=== PATIENT | male | born 1945 | race Caucasian/White ===

== ENCOUNTER 2021-05-05 13:20 | Observation (INO) | payer OTHER, SELFPAY ==
[2021-05-05] VITALS (12 sets, daily range): BP systolic 111–184; BP diastolic 65–92; PULSE 76–103; RESP 16–19; TEMP 36.6–37.4; O2SAT 94–98; BMI 31.4
--- NOTE | 2021-05-05 | ECG_ITS ---
Test Reason : DIZZINESS Blood Pressure : / mmHG Vent. Rate : 083 BPM Atrial Rate : 083 BPM P-R Int : 270 ms QRS Dur : 104 ms QT Int : 390 ms P-R-T Axes : 035 -61 034 degrees QTc Int : 458 ms Sinus rhythm with 1st degree A-V block Left axis deviation Inferior infarct , age undetermined Abnormal ECG No previous ECGs available Referred By: Generic ED Physician Electronically Signed By:DREAD PEREZ
--- NOTE | ~2021-05-05 | XR_ITS ---
EXAMINATION: XR CHEST CLINICAL INFORMATION: Fall. COMPARISON: None TECHNIQUE: Frontal view of the chest was obtained. FINDINGS: No significant abnormality is noted involving the heart, lungs, mediastinum, bony thorax or soft tissues. XR/XR chest 1V IMPRESSION: Unremarkable chest exam.
--- NOTE | ~2021-05-05 | CT_ITS ---
EXAM: CT scan of the head and cervical spine. INDICATION: Reason for Exam fall TECHNIQUE: A noncontrast CT scan was performed from the skull base to the vertex. A noncontrast CT scan of the cervical spine was performed from the base of the skull through T1 at 2.5 mm and 1.25 mm collimation. Coronal and sagittal reformats were obtained at the acquisition workstation. This CT examination was performed using dose optimization techniques as appropriate, variously including the following: *Automated exposure control *Adjustment of mA and/or kV according to patient size (this includes techniques or standardized protocols for targeted exams where dose is matched to indication/reason for exam; i.e. extremities or head) *Use of iterative reconstruction technique DLP: 446 and 710 mGy-cm COMPARISON: 09/17/2018 FINDINGS: Head: There is no evidence of acute intracranial hemorrhage or territorial infarction. Pond-white matter differentiation is preserved. No abnormal mass effect or midline shift. No extra-axial fluid collections. No abnormal attenuation is demonstrated within the brain parenchyma. Scattered periventricular and deep white matter hypodensities consistent with microangiopathy. The ventricles and sulcal spaces are proportional without hydrocephalus. Proportional prominence of the ventricles and sulcal spaces. No acute osseous or soft tissue abnormalities. The mastoid air cells and visualized portions of the paranasal sinuses are well aerated. Cervical Spine: Please note imaging excluded to C7-T1 junction. Advanced spondylosis most notable at C3-C4. The atlantooccipital and atlantoaxial articulations remain well aligned. Straightening of the normal cervical lordosis. Otherwise, there is anatomic alignment of the vertebral bodies and posterior elements. No evidence of acute fracture or subluxation. The vertebral body heights and disc spaces are otherwise maintained. There is no prevertebral soft tissue swelling. The thyroid gland and remaining cervical soft tissues are normal in appearance. The lung apices demonstrate no abnormalities. CT/CT cervical spine wo con IMPRESSION: No acute intracranial pathology. Imaging performed from C1 to the upper two thirds of C7. If this patient is symptomatic at the cervicothoracic junction, additional imaging may be obtained without additional charge. No gross fracture subluxation.
--- NOTE | ~2021-05-05 | MR_ITS ---
EXAMINATION: MR BRAIN WITHOUT CONTRAST CLINICAL INFORMATION: Dizziness. COMPARISON: CT head from 05/05/2021. TECHNIQUE: MRI of the brain was obtained using routine sequences without contrast. FINDINGS: No focal restricted diffusion is demonstrated to suggest acute or subacute cerebral ischemia. No evidence of acute or chronic hemorrhagic products on heme-sensitive imaging. Scattered periventricular, deep white matter, and brain stem T2 FLAIR hyperintensities consistent with mild underlying microangiopathy. Proportional prominence of the ventricles and sulcal spaces without evidence of obstructive hydrocephalus. No abnormal mass effect. No midline shift. Normal appearance of the pituitary gland. Normal positioning of the cerebellar tonsils. Normal arterial and venous vascular flow voids are present. Normal, homogeneous marrow signal. Mild mucosal thickening in the paranasal sinuses. No signal abnormalities within the mastoid. Bilateral lens extractions. MR/MR head/brain wo con IMPRESSION: 1. No acute intracranial abnormalities. 2. Mild underlying microangiopathy and generalized cerebral volume loss.
--- NOTE | 2021-05-05 14:33 | ED_ITS ---
HPI - General Adult General Chief complaint: Fall Stated complaint: FALL Time Seen by Provider: 05/05/21 14:09 Source: patient Mode of arrival: EMS Limitations: no limitations History of Present Illness HPI narrative: 75-year-old male with a past medical history of insulin dependent diabetes mellitus, hypertension, hyperlipidemia, who is not anticoagulated, presents for dizziness blurry vision and falling at 7:45 a.m. this morning. This occurred 7 hours ago. Patient got up out of bed, and took 2 steps, and fel t an electrical like shocks to his back into his right knee, and he fell and went face down and back to side on the floor. He flt dizzy, and had blurry vision. After falling, he was weak in his legs and could not get up. Patient states that normally he would be able to get up if he had fallen. Patient was on the floor from 8:00 a.m. until noon when he finally was able to crawl to a phone. Patient got his COVID booster of maturing yesterday. Denies fever, cough, urinary symptoms, chest pain, shortness of breath, nausea, vomiting, diarrhea, abdominal plain. His blurry vision has resolved now. He has no numbness or tingling. His leg weakness has resolved. He has no pain in his neck, no headache, no pain in his extremities. MD complaint: fall Onset (ago): hour(s) (7) Related Data Allergies Allergy/AdvReac Type Severity Reaction Status Date / Time No Known Allergies Allergy Unverified 06/02/20 19:37 [No Known Allergies*] Review of Systems Constitutional: Constitutional: Denies body ache(s), Denies chills, Denies fatigue, Denies fever(s), Denies headache(s), Denies malaise and Reports weakness Eyes: Eyes: Reports blurry vision, Denies diplopia, Denies loss of vision and Denies eye pain ENT: Denies vertigo, Reports dizziness, Denies otalgia, Denies headache(s), Denies mouth pain, Reports disequilibrium, Denies post nasal drip, Denies sinus pain, Denies sinus pressure, Denies sore throat and Denies throat swelling Cardiovascular: Cardiovascular: Denies chest pain, Denies syncope, Denies leg edema, Reports lightheadedness, Denies Loss of Consciousness, Denies palpitations and Denies dyspnea Respiratory: Respiratory: Denies chest congestion, Denies cough and Denies dyspnea Gastrointestinal: Gastrointestinal: Denies abdominal pain, Denies hematochezia, Denies constipation, Denies diarrhea and Denies vomiting Genitourinary: Genitourinary: Denies dysuria, Denies flank pain, Denies urinary frequency, Denies urinary hesitancy, Denies urinary incontinence and Denies urinary urgency Musculoskeletal: Musculoskeletal: Reports muscle weakness and Denies tingling Integumentary/Breasts: Skin/Breast: Denies erythema, Denies rash and Denies wounds Neurologic: Denies Abnormal speech present, Denies confusion, Denies vertigo, Reports dizziness, Denies syncope, Denies headache(s), Denies loss of vision, Denies Sensory deficit (Neuro), Denies tingling, Denies paresthesias, Reports disequilibrium and Reports weakness Psychiatric: Psychiatric: Denies anxiety, Denies confusion and Denies depression Endocrine: Endocrine: Denies fatigue and Denies palpitations Allergic/Immunologic: Allergic/Immunologic: Denies throat swelling [facility] Past Medical History [facility] Narrative: Patient lives alone Insulin-dependent diabetic, hypertension, hyperlipidemia Never smoker Medical History (Updated 05/05/21 @ 17:03 by OTILIO Lay) Diabetes HLD (hyperlipidemia) HTN (hypertension) Social History Social History Advance Directives: No Advance Directives Information Provided: No Physical Exam Vital Signs: Vital Signs: Last Vital Signs Temp 98.3 F 05/05/21 15:32 Pulse 84 05/05/21 16:44 Resp 16 05/05/21 16:44 BP 184/92 H 05/05/21 16:44 Pulse Ox 98 05/05/21 16:44 Body Mass Index 31.4 Const: General: no acute distress, alert and awake; No confusion Nutritional Appearance: obese centrally obese Orientation/consciousness: patient oriented x3 and No confusion Limitations: no limitations HENMT: Head: Yes normal to inspection, Yes normocephalic and Yes atraumatic Ears: hearing grossly normal bilaterally and external ears normal General nose exam: Normal external nose present Face and sinus: Yes normal facial exam Mouth: Normal oral and palatal mucosa present Throat: Yes posterior oropharynx normal Eyes: Conjunctivae: conjunctivae normal Pupils: Equal, round and reactive pupils present EOM: EOMs intact bilaterally and No Nystagmus present Neck: Neck: Yes full ROM, Yes no lymphadenopathy and Yes supple Resp: Effort & Inspection: normal respiratory effort and able to speak in complete sentences Auscultation: clear to auscultation bilaterally, no crackles, no rales, no rhonchi and no wheezes Cardio: Rate: regular rate Rhythm: regular rhythm Heart sounds: S1 tawanda l heart sound present and S2 normal heart sound present GI: Inspection: Yes visible herniation (umbilical) Palpation (GI): Soft to palpation, nontender, no guarding, not rigid and Hernia present umbilical (nontender and reducible) Percussion: Yes normal to percussion Auscultat ion: normal bowel sounds : General: Yes no CVA tenderness Back/Spine/Pelvis: Back: no CVA tenderness Cervical Spine: normal cervical lordosis, cervical ROM normal, No cervical muscular tenderness and No Cervical spine tenderness Thoracic/Lumbar Spine: No thoracic spinal tenderness and No lumbar spinal tenderness Skin: Other: Mild hemosiderin deposits lower extremities General skin exam: no rashes or lesions noted Neuro: General: patient oriented x3 and No confusion Cranial nerves: Yes CN's II-XII intact bilaterally, Yes Facial sensation intact/muscles of mastication intact, Yes Equal, round and reactive pupils present, Yes Bilateral ly intact EOM present, Yes Nystagmus not present, Yes Midline tongue present, Yes Ability to bilaterally rotate head present, Yes Ability to bilaterally elevate shoulders present and No Nystagmus present Cognition (Neuro): normal cognition Speech: No Abnormal speech present Gait exam (Neuro): Ataxic gait present Motor exam (neuro): 5/5 motor strength present throughout and Pronator motor function not present Sensory Exam: No Sensory deficit (Neuro) Deep tendon reflexes (DTR's): Right brachioradialis reflex intensity grade: 1+, Left brachioradialis reflex intensity grade: 1+, Right patellar reflex intensity grade: 1+ and Left patellar reflex intensity grade: 1+ Coordination: vialdr-ov-rubi test normal, does not sway with eyes open and Romberg test negative Romberg Test: Negative Pupils: Normal pupillary reactivity/response: bilateral Extrem: General: Yes normal to inspection and Yes full ROM Psych: Appearance: grossly normal Affect: normal affect Attitude: cooperative Thought process: Normal thought process present Course Course Course Narrative: 75-year-old male presents for feeling dizzy with blurry vision, having a fall, and being weak and unable to get up for 4 hours. Patient got his booster of maternal yesterday. On exam, patient is alert and oriented, he is neurologically intact except that his gait is shuffling and ataxic. Patient is outside the window for tPA, but I will still order CTA of head and neck due to patient's symptoms of dizziness, gait ataxia, and blurry vision. Patient's creatinine is 1.84, with a GFR of 36. Cannot do CTA, will do MR instead. Pt's blood glucose is 561. Creatinine kinase 642, troponin 31.8. Will give fluids, insulin EKG shows no acute ischemia, patient is not having chest pain. Spondylosis at C3-C4, no cervical spine fracture. Head CT is negative. Radiologist, Dr Myers, called and told me that it would be difficult to obtain MRI today due to MRI being backed up. Patient being admitted for possible TIA, hyperglycemia Patient tells me he did not take his insulin last night nor this morning. Medical Decision Making Lab Data Result diagrams: 05/05/21 14:55 05/05/21 14:55 Labs: Lab Results 05/05/21 05/05/21 05/05/21 Range/Units 14:54 14:55 14:55 WBC 6.2 (4.8-10.8) X10*3/uL RBC 4.43 L (4.60-5.80) X10*6/uL Hgb 14.1 (14.0-18.0) g/dl Hct 41.6 L (42-52) % MCV 93.9 (80-98) fL MCH 31.8 (27.0-33.0) pg MCHC 33.9 (31.0-36.0) g/dl RDW 12.9 (11.0-16.0) % Plt Count 137 L (160-400) X10*3/uL MPV 10.9 (9.4-12.4) fL Immature Gran % (Auto) 0.7 H (0.0-0.4) % Neut % (Auto) 80.5 H (45-73) % Lymph % (Auto) 9.8 L (20-40) % [place] % (Auto) 8.5 (2-11) % Eos % (Auto) 0.2 (0-4) % Baso % (Auto) 0.3 (0-2) % Lymph # (Auto) 0.6 L (1.2-4.9) X10*3/uL [place] # (Auto) 0.5 (0.1-1.2) X10*3/uL Eos # (Auto) 0.0 (0.0-0.4) X10*3/uL Baso # (Auto) 0.0 (0.0-0.2) X10*3/uL Abs Immat Gran (auto) 0.04 H (0.00-0.03) X10*3/uL Absolute Neuts (auto) 5.0 (2.0-8.3) X10*3/uL Absolute Nucleated RBC 0.000 (0.0-0.012) X10*3/uL Nucleated RBC % (auto) 0.0 (0.0-0.2) /100WBC PT 10.6 (9.9-13.0) SEC INR 0.9 (0.9-1.1) APTT 22.5 L (24.1-38.0) SEC Sodium (135-145) mmol/L Potassium (3.3-5.1) mmol/L Chloride (96-108) mmol/L Carbon Dioxide (22-29) mmol/L Anion Gap (12-20) BUN (9-16) mg/dL Creatinine (0.5-1.4) mg/dL Estim Creat Clear Calc Estimated GFR Random Glucose (60-115) mg/dL Calcium (8.4-10.2) mg/dL Magnesium (1.6-2.6) mg/dL Total Bilirubin (0.0-1.0) mg/dL AST (5-37) U/L ALT (0-40) U/L Alkaline Phosphatase (39-117) U/L Total Creatine Kinase (38-174) U/L Troponin I High Sens (<3.5-35.0) ng/L Total Protein (6.5-8.0) g/dL Albumin (3.5-5.0) g/dL Urine Color Urine Appearance Urine pH (5.0-8.0) Ur Specific [place] (1.005-1.025) Urine Protein (NEG-TRACE) MG/DL Urine Glucose (UA) (NEG) MG/DL Urine Ketones (NEG) MG/DL Urine Blood (NEG) Urine Nitrite (NEG) Ur Leukocyte Esterase (NEG) Urine RBC (0) /HPF Urine WBC (0-4) /HPF Ur Squamous Epith Cells /LPF Urine Bacteria /LPF Urine Mucus /LPF COVID-19 (ASAEL) Negative (Negative) COVID-19 Clin Com See Note 05/05/21 05/05/21 05/05/21 Range/Units 14:55 14:55 15:36 WBC (4.8-10.8) X10*3/uL RBC (4.60-5.80) X10*6/uL Hgb (14.0-18.0) g/dl Hct (42-52) % MCV (80-98) fL MCH (27.0-33.0) pg MCHC (31.0-36.0) g/dl RDW (11.0-16.0) % Plt Count (160-400) X10*3/uL MPV (9.4-12.4) fL Immature Gran % (Auto) (0.0-0.4) % Neut % (Auto) (45-73) % Lymph % (Auto) (20-40) % [place] % (Auto) (2-11) % Eos % (Auto) (0-4) % Baso % (Auto) (0-2) % Lymph # (Auto) (1.2-4.9) X10*3/uL [place] # (Auto) (0.1-1.2) X10*3/uL Eos # (Auto) (0.0-0.4) X10*3/uL Baso # (Auto) (0.0-0.2) X10*3/uL Abs Immat Gran (auto) (0.00-0.03) X10*3/uL Absolute Neuts (auto) (2.0-8.3) X10*3/uL Absolute Nucleated RBC (0.0-0.012) X10*3/uL Nucleated RBC % (auto) (0.0-0.2) /100WBC PT (9.9-13.0) SEC INR (0.9-1.1) APTT (24.1-38.0) SEC Sodium 138 (135-145) mmol/L Potassium 4.7 (3.3-5.1) mmol/L Chloride 102 (96-108) mmol/L Carbon Dioxide 22 (22-29) mmol/L Anion Gap 19 (12-20) BUN 30 H (9-16) mg/dL Creatinine 1.84 H (0.5-1.4) mg/dL Estim Creat Clear Calc 38.5 Estimated GFR 36 Random Glucose 561 H* (60-115) mg/dL Calcium 9.3 (8.4-10.2) mg/dL Magnesium 2.3 (1.6-2.6) mg/dL Total Bilirubin 0.8 (0.0-1.0) mg/dL AST 30 (5-37) U/L ALT 38 (0-40) U/L Alkaline Phosphatase 61 (39-117) U/L Total Creatine Kinase 642 H (38-174) U/L Troponin I High Sens 31.8 (<3.5-35.0) ng/L Total Protein 6.9 (6.5-8.0) g/dL Albumin 4.1 (3.5-5.0) g/dL Urine Color YELLOW Urine Appearance HAZY Urine pH 6.0 (5.0-8.0) Ur Specific [place] 1.025 (1.005-1.025) Urine Protein NEG (NEG-TRACE) MG/DL Urine Glucose (UA) NEG (NEG) MG/DL Urine Ketones 5 (NEG) MG/DL Urine Blood TRACE (NEG) Urine Nitrite NEG (NEG) Ur Leukocyte Esterase NEG (NEG) Urine RBC 0-2 (0) /HPF Urine WBC 0-2 (0-4) /HPF Ur Squamous Epith Cells 2+ /LPF Urine Bacteria TRACE /LPF Urine Mucus 2+ /LPF COVID-19 (ASAEL) (Negative) COVID-19 Clin Com ECG Data Interpretation: EKG shows sinus at a rate of 83, with a first-degree AV block. Left axis deviation. ME interval 270, QRS 104, QTC 458. No ST elevations or depressions, no T-wave changes.
[2021-05-05 15:00] LABS: MANUAL DIFF FLAG NO
[2021-05-05 15:03] LABS: Basophils Percent Auto 0.3 % (0-2); Eosinophils Percent Auto 0.2 % (0-4); Hematocrit 41.6 % (42-52); Hemoglobin 14.1 g/dl (14.0-18.0); Imm Gran Abs Auto 0.04 X10*3/uL (0.00-0.03); Imm Gran Pct Auto 0.7 % (0.0-0.4); Lymphocytes Absolute Auto 0.6 X10*3/uL (1.2-4.9); Lymphocytes Percent Auto 9.8 % (20-40); Mean Corpuscular HGB Conc 33.9 g/dl (31.0-36.0); Mean Corpuscular Hemoglobin 31.8 pg (27.0-33.0); Mean Corpuscular Volume 93.9 fL (80-98); Mean Platelet Volume 10.9 fL (9.4-12.4); Monocytes Absolute Auto 0.5 X10*3/uL (0.1-1.2); Monocytes Percent Auto 8.5 % (2-11); Neutrophils Percent Auto 80.5 % (45-73); Platelet Count 137 X10*3/uL (160-400); Red Blood Count 4.43 X10*6/uL (4.60-5.80); Red Cell Distribution Width 12.9 % (11.0-16.0); White Blood Count 6.2 X10*3/uL (4.8-10.8)
[2021-05-05 15:25] LABS: COVID-19 Test Negative (Negative)
[2021-05-05 15:31] LABS: Troponin-I High Sensitivity 31.8 ng/L (<3.5-35.0)
[2021-05-05 15:44] LABS: Alanine Aminotransferase 38 U/L (0-40); Albumin Level 4.1 g/dL (3.5-5.0); Alkaline Phosphatase 61 U/L (39-117); Anion Gap 19 (12-20); Aspartate Amino Transferase 30 U/L (5-37); Bilirubin Total 0.8 mg/dL (0.0-1.0); Blood Urea Nitrogen 30 mg/dL (9-16); Calcium 9.3 mg/dL (8.4-10.2); Carbon Dioxide 22 mmol/L (22-29); Chloride 102 mmol/L (96-108); Creatinine Clr Calc Pharmacy 38.5; Estimated Glomerular Filt Rate 36; Glucose Random 561 mg/dL (60-115); Magnesium 2.3 mg/dL (1.6-2.6); Potassium 4.7 mmol/L (3.3-5.1); Sodium 138 mmol/L (135-145); Total Protein 6.9 g/dL (6.5-8.0)
[2021-05-05 16:00] LABS: Glucose Urine UA NEG (NEG); Leukocyte Esterase Urine NEG (NEG); Nitrite Urine NEG (NEG); Specific Gravity - Urine 1.025 (1.005-1.025); Urine Blood TRACE (NEG); Urine Ketones 5 MG/DL (NEG); Urine Protein NEG (NEG-TRACE)
--- NOTE | 2021-05-05 16:03 | MHC.STROKE ---
EMS PRE-NOTIFIED 1316, NOT A STROKE ALERT. ARRIVED 1320. LAST KNOWN WELL 0100, DISCOVERED SYMPTOMS 0750 WHEN HE GOT UP. HE HAD A ROUTINE DAY YESTERDAY [facility]TH[facility], HE SAID IT WAS EARLIER THAN RECOMMENDED . UPON WAKING HE SAT ON THE EDGE OF THE BED AND FELT OFF, HE STOOD UP, AND AND HE FELT LIKE A SHOCK WENT THROUGH HIM, HE GOT LIGHTHEADED AND HE FELT LIKE HIS VISION WAS BLURRY. THIS HAS NEVER HAPPENED BEFORE. HE FELL TO THE FLOOR AND COULD NOT GET UP. HE DOES HAVE A HISTORY OF KNEE/LEG ISSUES. AT 1530 I PERFORMED THE NIHSS = 0. I HAD HIM GET HIMSELF TO THE EDGE OF THE STRETCHER, THEN SIT, THAN WALK. HE IS FAVORING HIS LEG ON THE RIGHT. HE WAS ABLE TO GET BACK TO BED. NO FOCAL NEURO-DEFICIT. HE SAID, MAYBE IT WAS THAT SHOT? HE HAS STROKE RISK FACTORS HTN, DM, HDL. HIS BLOOD SUGARS ARE ELEVATED. HE IS REQUESTING SOMETHING TO EAT. I DID NOTIFY THE MD. HE WAS SCHEDULED FOR CT AND CTA H/N BUT HIS CREATININE WAS ELEVATED AND IT WAS DECIDED TO CANCEL THE CTA AND DO A MRI WITHOUT CONTRAST TO R/O POSTERIOR CIRCULATION STROKE. I EXPLAINED THE PLAN OF CARE TO THE PATIENT AND COMMUNICATED MY EXAM TO THE PROVIDER AND RN.
[2021-05-05 16:05] LABS: Appearance Urine HAZY; Color Urine YELLOW
[2021-05-05] MEDS: 0.9 % Sodium Chloride 1,000 ML 999 ML IV (16:08)
[2021-05-05] MEDS: Insulin Regular, Human 100 UNIT/ML 3 ML VIAL 10 UNIT IVPUSH (16:08)
[2021-05-05 16:12] LABS: INTERNATIONAL NORM RATIO 0.9 (0.9-1.1); Prothrombin Time 10.6 SEC (9.9-13.0)
[2021-05-05 16:16] LABS: Partial Thromboplastin Time 22.5 SEC (24.1-38.0)
[2021-05-05 16:23] LABS: RBC Urine 0-2 /HPF (0); WBC Urine 0-2 /HPF (0-4)
[2021-05-05 16:24] LABS: Bacteria Urine TRACE /LPF; Mucus Urine 2+ /LPF; Squamous Epithelial Cell Urine 2+ /LPF
[2021-05-05 17:23] LABS: Troponin-I High Sensitivity 30.8 ng/L (<3.5-35.0)
[2021-05-05 17:28] LABS: Glucose, Whole Blood 321 mg/dL (60-115)
--- NOTE | 2021-05-05 17:54 | PM.IMHP ---
History of Present Illness Date of Service: 05/05/21 Chief Complaint: fall, weakness 75M presented with fall and generalized weakness. patient received 3rd shot of covid vaccine day ptp. that evening started to feel generalized weakness, did not take evening lantus. in AM also did not take insulin. in AM felt weak and whoozy. he felt his knees go out on him and fell, hitting his head, no LOC, no palpiations or chest pain. he had trouble getting onto feet, was on ground for 4 hours until able to call EMS. in ED found to have hyperglycemia, elevated creatinine, CTH unremarkable. Review of Systems Review of Systems: Constitutional: Denies fever, denies Chills Eyes: denies blurry vision ENT: denies sore throat CVS: denies chest pain Respiratory: Denies dyspnea GI: no abdominal pain : denies dysuria MSK: denies neck pain Skin: denies rash Neuro: denies specific motor weakness Psych: denies suicidal ideation Endocrine: denies heat/cold intolerance Hematologic: denies easy bleeding Allergy: denies hives [facility] Medical History Diabetes HLD (hyperlipidemia) HTN (hypertension) Family history: reviewed and not pertinent Social History Advance Directives: No Advance Directives Information Provided: No Meds Allergies Allergy/AdvReac Type Severity Reaction Status Date / Time No Known Allergies Allergy Unverified 06/02/20 19:37 [No Known Allergies*] Active Medications: Current Medications Generic Name Dose Route Start Last Admin Trade Name Freq PRN Reason Stop Dose Admin Dextrose 25 gm 05/05/21 17:51 Dextrose 50 % 25 Gm/50 Ml Vial IVPUSH Q15M PRN per Hypoglycemia Standing Ord. Protocol Glucose 15 gm 05/05/21 17:51 Glucose Gel 15 Gm Gel..Gram. PO Q15M PRN per Hypoglycemia Standing Ord. Protocol Insulin Human Lispro 0 unit 05/05/21 21:00 Insulin Lispro 100 Unit/Ml 3 Ml Vial [facility] Protocol Insulin Human Lispro 5 unit 05/05/21 21:00 Insulin Lispro 100 Unit/Ml 3 Ml Vial SUBCUT [facility] Pharmacy Consult 1 each 05/05/21 16:54 Consult Rx Perform Med Rec MISCELLANE ONCE PRN Consult order Physical Exam Vital Signs and Narrative: Vital Signs: Last Vital Signs Temp 98.3 F 05/05/21 15:32 Pulse 84 05/05/21 16:44 Resp 16 05/05/21 16:44 BP 184/92 H 05/05/21 16:44 Pulse Ox 98 05/05/21 16:44 Body Mass Index 31.4 General: no acute distress HEENT: atraumatic Neck: normal to visual inspection CVS: S1, S2, RRR Resp: CTA bilateral Chest: non tender GI: soft, non tender, non distended : no CVA tenderness Skin: no rashes Extremities: no edema Neuro: Oriented X3, grossly intact Psych: cooperative Results Labs CBC and Chem 7: 05/05/21 14:55 05/05/21 14:55 Labs: Laboratory Results - last 24 hr 05/05/21 05/05/21 05/05/21 14:54 14:55 14:55 MCV 93.9 MCH 31.8 MCHC 33.9 RDW 12.9 Plt Count 137 L MPV 10.9 Immature Gran % (Auto) 0.7 H Neut % (Auto) 80.5 H Lymph % (Auto) 9.8 L [place] % (Auto) 8.5 Eos % (Auto) 0.2 Baso % (Auto) 0.3 Lymph # (Auto) 0.6 L [place] # (Auto) 0.5 Eos # (Auto) 0.0 Baso # (Auto) 0.0 Abs Immat Gran (auto) 0.04 H Absolute Neuts (auto) 5.0 Absolute Nucleated RBC 0.000 Nucleated RBC % (auto) 0.0 PT 10.6 INR 0.9 APTT 22.5 L Anion Gap Estim Creat Clear Calc Estimated GFR POC Glucose Random Glucose Calcium Magnesium Total Bilirubin AST ALT Alkaline Phosphatase Total Creatine Kinase Troponin I High Sens Total Protein Albumin Urine Color Urine Appearance Urine pH Ur Specific [place] Urine Protein Urine Glucose (UA) Urine Ketones Urine Blood Urine Nitrite Ur Leukocyte Esterase Urine RBC Urine WBC Ur Squamous Epith Cells Urine Bacteria Urine Mucus COVID-19 (ASAEL) Negative COVID-19 Clin Com See Note 05/05/21 05/05/21 05/05/21 14:55 14:55 15:36 MCV MCH MCHC RDW Plt Count MPV Immature Gran % (Auto) Neut % (Auto) Lymph % (Auto) [place] % (Auto) Eos % (Auto) Baso % (Auto) Lymph # (Auto) [place] # (Auto) Eos # (Auto) Baso # (Auto) Abs Immat Gran (auto) Absolute Neuts (auto) Absolute Nucleated RBC Nucleated RBC % (auto) PT INR APTT Anion Gap 19 Estim Creat Clear Calc 38.5 Estimated GFR 36 POC Glucose Random Glucose 561 H* Calcium 9.3 Magnesium 2.3 Total Bilirubin 0.8 AST 30 ALT 38 Alkaline Phosphatase 61 Total Creatine Kinase 642 H Troponin I High Sens 31.8 Total Protein 6.9 Albumin 4.1 Urine Color YELLOW Urine Appearance HAZY Urine pH 6.0 Ur Specific [place] 1.025 Urine Protein NEG Urine Glucose (UA) NEG Urine Ketones 5 Urine Blood TRACE Urine Nitrite NEG Ur Leukocyte Esterase NEG Urine RBC 0-2 Urine WBC 0-2 Ur Squamous Epith Cells 2+ Urine Bacteria TRACE Urine Mucus 2+ COVID-19 (ASAEL) COVID-19 [employer] Com 05/05/21 05/05/21 16:48 17:24 MCV MCH MCHC RDW Plt Count MPV Immature Gran % (Auto) Neut % (Auto) Lymph % (Auto) [place] % (Auto) Eos % (Auto) Baso % (Auto) Lymph # (Auto) [place] # (Auto) Eos # (Auto) Baso # (Auto) Abs Immat Gran (auto) Absolute Neuts (auto) Absolute Nucleated RBC Nucleated RBC % (auto) PT INR APTT Anion Gap Estim Creat Clear Calc Estimated GFR POC Glucose 321 H Random Glucose Calcium Magnesium Total Bilirubin AST ALT Alkaline Phosphatase Total Creatine Kinase Troponin I High Sens 30.8 Total Protein Albumin Urine Color Urine Appearance Urine pH Ur Specific [place] Urine Protein Urine Glucose (UA) Urine Ketones Urine Blood Urine Nitrite Ur Leukocyte Esterase Urine RBC Urine WBC Ur Squamous Epith Cells Urine Bacteria Urine Mucus COVID-19 (ASAEL) COVID-19 Clin Com Imaging Radiologist's Impressions: Impressions Cervical Spine CT 05/05/21 14:33 IMPRESSION: No acute intracranial pathology. Imaging performed from C1 to the upper two thirds of C7. If this patient is symptomatic at the cervicothoracic junction, additional imaging may be obtained without additional charge. No gross fracture subluxation. Chest X-Ray 05/05/21 14:33 IMPRESSION: Unremarkable chest exam. Head CT 05/05/21 14:33 IMPRESSION: No acute intracranial pathology. Imaging performed from C1 to the upper two thirds of C7. If this patient is symptomatic at the cervicothoracic junction, additional imaging may be obtained without additional charge. No gross fracture subluxation. Assessment and Plan (1) Acute hyperglycemia: Status: Acute 75M presented with weakness, fall, found to have elevated sugars and creatinine fall/weakness suspect due to recent covid vaccine booster rule out tia tele, neuro eval asa, statin ivf elevated creatinine CARLY vs CKD III ivf, monitor DM with hyperglycemia due to not taking insulin restart basal bolus insulin HTN, HLD awaiting home med list from [place] [facility] Does the patient have a stroke diagnosis?: No VTE Prior VTE?: No VTE Risk Level:: Medical - moderate - high VTE Device Contraindication: Treatment Not Indicated VTE Drug Contraindication: N/A - Med Ordered
[2021-05-05] MEDS: Lactated Ringers 1,000 ML 80 ML IVCONT (18:16)
[2021-05-05 18:26] LABS: Glucose, Whole Blood 388 mg/dL (60-115)
[2021-05-05 19:10] LABS: Glucose, Whole Blood 282 mg/dL (60-115)
[2021-05-05 20:00] LABS: Glucose, Whole Blood 321 mg/dL (60-115)
[2021-05-05] MEDS: Insulin Lispro 100 UNIT/ML 3 ML VIAL SUBCUT ×2 (20:12→20:13)
[2021-05-05] MEDS: Insulin Glargine,Hum.rec.anlog 100 UNIT/ML 10 ML VIAL 10 UNIT SUBCUT (20:13)
[2021-05-05] MEDS: Heparin Sodium,Porcine 5,000 UNIT/ML VIAL 5000 UNIT SUBCUT (20:13)
--- NOTE | 2021-05-05 21:06 | HE.PHANOTE ---
Pharmacy Consult ? Medication Reconciliation Pharmacy has completed the medication reconciliation. Patient is unaware of the names of medications he takes. [facility] and spoke to railroad crane operator who faxed me med list. Per railroad crane operator there is not other information regarding any additional medications patient is taking. Patient had med list from 2019 but those medications have not been filled recently. I called son, he does not know the medications his dad takes. I will leave a note for pharmacy to [facility] tomorrow in off chance we can obtain more information. Provider has been notified Nola Glasgow PharmD.?
[2021-05-05 22:30] LABS: Glucose, Whole Blood 251 mg/dL (60-115)
[2021-05-06] VITALS (8 sets, daily range): BP systolic 137–176; BP diastolic 67–84; PULSE 76–94; RESP 17–18; TEMP 36.4–37; O2SAT 95–96
[2021-05-06 06:59] LABS: Hematocrit 37.8 % (42-52); Hemoglobin 12.8 g/dl (14.0-18.0); Mean Corpuscular HGB Conc 33.9 g/dl (31.0-36.0); Mean Corpuscular Volume 94.5 fL (80-98); Mean Platelet Volume 10.9 fL (9.4-12.4); Platelet Count 130 X10*3/uL (160-400); Red Cell Distribution Width 13.1 % (11.0-16.0)
[2021-05-06 07:21] LABS: Glucose, Whole Blood 297 mg/dL (60-115)
[2021-05-06 07:29] LABS: Anion Gap 13 (12-20); Blood Urea Nitrogen 22 mg/dL (9-16); Calcium 8.3 mg/dL (8.4-10.2); Carbon Dioxide 23 mmol/L (22-29); Chloride 108 mmol/L (96-108); Creatinine Clr Calc Pharmacy 54.1; Estimated Glomerular Filt Rate 53; Glucose Fasting 313 mg/dL (60-99); Potassium 4.1 mmol/L (3.3-5.1); Sodium 140 mmol/L (135-145)
[2021-05-06] MEDS: Lactated Ringers 1,000 ML 80 ML IVCONT ×2 (07:45→20:14)
[2021-05-06] MEDS: Heparin Sodium,Porcine 5,000 UNIT/ML VIAL 5000 UNIT SUBCUT ×2 (07:46→17:47)
[2021-05-06] MEDS: Insulin Lispro 100 UNIT/ML 3 ML VIAL SUBCUT ×8 (07:47→21:10)
[2021-05-06] MEDS: 0.9 % Sodium Chloride Flush 3 ML SYRINGE IVFLUSH (07:47)
[2021-05-06] MEDS: Aspirin Enteric Coated 81 MG TABLET.DR PO (07:48)
--- NOTE | 2021-05-06 10:34 | P.DS_ITS ---
DS: Providers Provider Date of Service: 05/06/21 Date of admission: 05/05/21 18:48 Primary care physician: Unknown Physician DS: Diagnosis Discharge Diagnosis (1) Acute hyperglycemia: Status: Acute DS: Medications Discharge Medications Home Medications: Home Medications Medication Instructions Recorded Confirmed cholecalciferol (vitamin D3) 50 50 mcg PO DAILY 05/05/21 05/05/21 mcg (2,000 unit) capsule (Vitamin D3) fluoride (sodium) 1.1 % dental 1 appl DENTAL BID 05/05/21 05/05/21 paste insulin aspart U-100 100 unit/mL 65 unit SUBCUT TIDAC 05/05/21 05/05/21 subcutaneous solution (Novolog U-100 Insulin aspart) insulin glargine 100 unit/mL 85 unit SUBCUT BEDTIME 05/05/21 05/05/21 subcutaneous solution (Lantus U-100 Insulin) multivitamin 1 tab PO DAILY 05/05/21 05/05/21 DS: Summary Hospital Course Hospital Course: Patient was observed to rule out TIA/cva. MRI was negative. He was also given IV fluids for acute kidney injury, he is now back to baseline. Patient was also having hyperglycemia, this was due to not take his insulin, hyperglycemia is resolved at time of discharge. Most likely his weakness was related to recent COVID booster and is now feeling better and will be discharged home. Time Spent with Patient Time attestation: Total time spent providing and/or coordinating discharge services: Discharge coordination time: Greater than 30 minutes Quality: Stroke Does the patient have a stroke diagnosis?: No Physical Exam Vital Signs: Vital Signs: Last Vital Signs Temp 97.9 F 05/06/21 07:35 Pulse 94 05/06/21 08:33 Resp 17 05/06/21 07:35 BP 168/83 H 05/06/21 08:33 Pulse Ox 95 05/06/21 07:35 Body Mass Index 31.4 DS: Data Data Completed and Pending Labs on day of discharge: Laboratory Results - last 24 hr 05/05/21 05/05/21 05/05/21 14:54 14:55 14:55 WBC 6.2 RBC 4.43 L Hgb 14.1 Hct 41.6 L MCV 93.9 MCH 31.8 MCHC 33.9 RDW 12.9 Plt Count 137 L MPV 10.9 Immature Gran % (Auto) 0.7 H Neut % (Auto) 80.5 H Lymph % (Auto) 9.8 L [place] % (Auto) 8.5 Eos % (Auto) 0.2 Baso % (Auto) 0.3 Lymph # (Auto) 0.6 L [place] # (Auto) 0.5 Eos # (Auto) 0.0 Baso # (Auto) 0.0 Abs Immat Gran (auto) 0.04 H Absolute Neuts (auto) 5.0 Absolute Nucleated RBC 0.000 Nucleated RBC % (auto) 0.0 PT 10.6 INR 0.9 APTT 22.5 L Sodium Potassium Chloride Carbon Dioxide Anion Gap BUN Creatinine Estim Creat Clear Calc Estimated GFR POC Glucose Random Glucose Fasting Glucose Calcium Magnesium Total Bilirubin AST ALT Alkaline Phosphatase Total Creatine Kinase Troponin I High Sens Total Protein Albumin Urine Color Urine Appearance Urine pH Ur Specific [place] Urine Protein Urine Glucose (UA) Urine Ketones Urine Blood Urine Nitrite Ur Leukocyte Esterase Urine RBC Urine WBC Ur Squamous Epith Cells Urine Bacteria Urine Mucus COVID-19 ([facility]) Negative COVID-19 Clin Com See Note 05/05/21 05/05/21 05/05/21 14:55 14:55 15:36 WBC RBC Hgb Hct MCV MCH MCHC RDW Plt Count MPV Immature Gran % (Auto) Neut % (Auto) Lymph % (Auto) [place] % (Auto) Eos % (Auto) Baso % (Auto) Lymph # (Auto) [place] # (Auto) Eos # (Auto) Baso # (Auto) Abs Immat Gran (auto) Absolute Neuts (auto) Absolute Nucleated RBC Nucleated RBC % (auto) PT INR APTT Sodium 138 Potassium 4.7 Chloride 102 Carbon Dioxide 22 Anion Gap 19 BUN 30 H Creatinine 1.84 H Estim Creat Clear Calc 38.5 Estimated GFR 36 POC Glucose Random Glucose 561 H* Fasting Glucose Calcium 9.3 Magnesium 2.3 Total Bilirubin 0.8 AST 30 ALT 38 Alkaline Phosphatase 61 Total Creatine Kinase 642 H Troponin I High Sens 31.8 Total Protein 6.9 Albumin 4.1 Urine Color YELLOW Urine Appearance HAZY Urine pH 6.0 Ur Specific [place] 1.025 Urine Protein NEG Urine Glucose (UA) NEG Urine Ketones 5 Urine Blood TRACE Urine Nitrite NEG Ur Leukocyte Esterase NEG Urine RBC 0-2 Urine WBC 0-2 Ur Squamous Epith Cells 2+ Urine Bacteria TRACE Urine Mucus 2+ COVID-19 ([facility]) COVID-19 Clin Com 05/05/21 05/05/21 05/05/21 16:42 16:48 17:24 WBC RBC Hgb Hct MCV MCH MCHC RDW Plt Count MPV Immature Gran % (Auto) Neut % (Auto) Lymph % (Auto) [place] % (Auto) Eos % (Auto) Baso % (Auto) Lymph # (Auto) [place] # (Auto) Eos # (Auto) Baso # (Auto) Abs Immat Gran (auto) Absolute Neuts (auto) Absolute Nucleated RBC Nucleated RBC % (auto) PT INR APTT Sodium Potassium Chloride Carbon Dioxide Anion Gap BUN Creatinine Estim Creat Clear Calc Estimated GFR POC Glucose 388 H* 321 H Random Glucose Fasting Glucose Calcium Magnesium Total Bilirubin AST ALT Alkaline Phosphatase Total Creatine Kinase Troponin I High Sens 30.8 Total Protein Albumin Urine Color Urine Appearance Urine pH Ur Specific [place] Urine Protein Urine Glucose (UA) Urine Ketones Urine Blood Urine Nitrite Ur Leukocyte Esterase Urine RBC Urine WBC Ur Squamous Epith Cells Urine Bacteria Urine Mucus COVID-19 ([facility]) COVID-19 [employer] 05/05/21 05/05/21 05/05/21 19:02 19:57 22:27 WBC RBC Hgb Hct MCV MCH MCHC RDW Plt Count MPV Immature Gran % (Auto) Neut % (Auto) Lymph % (Auto) [place] % (Auto) Eos % (Auto) Baso % (Auto) Lymph # (Auto) [place] # (Auto) Eos # (Auto) Baso # (Auto) Abs Immat Gran (auto) Absolute Neuts (auto) Absolute Nucleated RBC Nucleated RBC % (auto) PT INR APTT Sodium Potassium Chloride Carbon Dioxide Anion Gap BUN Creatinine Estim Creat Clear Calc Estimated GFR POC Glucose 282 H 321 H 251 H Random Glucose Fasting Glucose Calcium Magnesium Total Bilirubin AST ALT Alkaline Phosphatase Total Creatine Kinase Troponin I High Sens Total Protein Albumin Urine Color Urine Appearance Urine pH Ur Specific [place] Urine Protein Urine Glucose (UA) Urine Ketones Urine Blood Urine Nitrite Ur Leukocyte Esterase Urine RBC Urine WBC Ur Squamous Epith Cells Urine Bacteria Urine Mucus COVID-19 ([facility]) COVID-19 [employer] 05/06/21 05/06/21 05/06/21 05:16 05:16 07:17 WBC 5.0 RBC 4.00 L Hgb 12.8 L Hct 37.8 L MCV 94.5 MCH 32.0 MCHC 33.9 RDW 13.1 Plt Count 130 L MPV 10.9 Immature Gran % (Auto) Neut % (Auto) Lymph % (Auto) [place] % (Auto) Eos % (Auto) Baso % (Auto) Lymph # (Auto) [place] # (Auto) Eos # (Auto) Baso # (Auto) Abs Immat Gran (auto) Absolute Neuts (auto) Absolute Nucleated RBC 0.000 Nucleated RBC % (auto) 0.0 PT INR APTT Sodium 140 Potassium 4.1 Chloride 108 Carbon Dioxide 23 Anion Gap 13 BUN 22 H Creatinine 1.31 Estim Creat Clear Calc 54.1 Estimated GFR 53 POC Glucose 297 H Random Glucose Fasting Glucose 313 H Calcium 8.3 L D Magnesium Total Bilirubin AST ALT Alkaline Phosphatase Total Creatine Kinase Troponin I High Sens Total Protein Albumin Urine Color Urine Appearance Urine pH Ur Specific [place] Urine Protein Urine Glucose (UA) Urine Ketones Urine Blood Urine Nitrite Ur Leukocyte Esterase Urine RBC Urine WBC Ur Squamous Epith Cells Urine Bacteria Urine Mucus COVID-19 ([facility]) COVID-19 Clin Com Discharge Plan Discharge Patient Disposition: Home, Self-Care Referrals: Physician,Unknown [Primary Care Provider] - 1 Week Discharge Medications: Continued multivitamin Tablet 1 tab PO DAILY RF: 0 Lantus U-100 Insulin 100 unit/mL Solution 85 unit SUBCUT BEDTIME RF: 0 insulin aspart U-100 [Novolog U-100 Insulin aspart] 100 unit/mL Solution 65 unit SUBCUT TIDAC RF: 0 fluoride (sodium) 1.1 % Paste 1 appl DENTAL BID RF: 0 cholecalciferol (vitamin D3) [Vitamin D3] 50 mcg (2,000 unit) Capsule 50 mcg PO DAILY RF: 0 Discharge Orders: Discharge Order (Routine); Ordered 05/06/21 Ordered By: Bhanu Nicholson Diet: advance to usual diet Activity on Discharge: As tolerated Stand Alone Forms: Patient Portal Discharge page Care Plan Goals: recovery Health Concerns: weakness Plan of Treatment: advnace activity as toelrated Assessment: see above
[2021-05-06 11:23] LABS: Glucose, Whole Blood 257 mg/dL (60-115)
--- NOTE | 2021-05-06 15:51 | HO.PM.IMPN ---
Subjective Subjective Date of Service: 05/06/21 Interval History: feeling better Cardiovascular Cardiovascular: Reports no additional cardiovascular complaints Respiratory Respiratory: Reports no additional respiratory complaints Physical Exam Vital Signs: Vital Signs: Last Vital Signs Temp 97.5 F 05/06/21 11:46 Pulse 76 05/06/21 11:46 Resp 18 05/06/21 11:46 BP 137/78 05/06/21 11:46 Pulse Ox 96 05/06/21 11:46 Body Mass Index 31.4 General: AO X 3, no acute distress Resp: CTA bilateral CVS: S1,S2,RRR GI: soft, non tender, non distended Neuro: motor grossly intact Psych: appropriate affect Objective Data Current Medications Generic Name Dose Route Start Last Admin Trade Name Freq PRN Reason Stop Dose Admin Aspirin 81 mg 05/06/21 09:00 05/06/21 07:48 Aspirin Enteric Coated 81 Mg Tablet.Dr PO 81 mg DAILY SAIGE Administration Dextrose 25 gm 05/05/21 17:51 Dextrose 50 % 25 Gm/50 Ml Vial IVPUSH Q15M PRN per Hypoglycemia Standing Ord. Protocol Glucose 15 gm 05/05/21 17:51 Glucose Gel 15 Gm Gel..Gram. PO Q15M PRN per Hypoglycemia Standing Ord. Protocol Heparin Sodium (Porcine) 5,000 unit 05/05/21 19:00 05/06/21 07:46 Heparin Sodium,Porcine 5,000 Unit/Ml Vial SUBCUT 5,000 unit Q12H SAIGE Administration Lactated Ringer's 1,000 mls @ 80 mls/hr 05/05/21 18:00 05/06/21 07:45 Lr IVCONT 80 mls/hr .[id number] SAIGE Administration Insulin Glargine 10 unit 05/05/21 21:00 05/05/21 20:13 Insulin Glargine,Hum.Rec.Anlog 100 Unit/Ml 10 Ml Vial SUBCUT 10 unit BEDTIME SAIGE Administration Insulin Human Lispro 0 unit 05/05/21 21:00 05/06/21 11:35 Insulin Lispro 100 Unit/Ml 3 Ml Vial SUBCUT 6 unit QIDACHS SAIGE Administration Protocol Insulin Human Lispro 5 unit 05/05/21 21:00 05/06/21 11:36 Insulin Lispro 100 Unit/Ml 3 Ml Vial SUBCUT 5 unit QIDACHS [facility] Administration Pharmacy Consult 1 each 05/05/21 16:54 Consult Rx Perform Med Rec MISCELLANE ONCE PRN Consult order Sodium Chloride 3 ml 05/06/21 00:00 05/06/21 07:47 0.9 % Sodium Chloride Flush 3 Ml Syringe IVFLUSH 3 ml QSHIFT [facility] Administration Labs CBC & Chem 7: 05/06/21 05:16 05/06/21 05:16 Labs: Laboratory Results - last 24 hr 05/05/21 05/05/21 05/05/21 14:55 15:36 16:42 MCV MCH MCHC RDW Plt Count MPV Absolute Nucleated RBC Nucleated RBC % (auto) PT 10.6 INR 0.9 APTT 22.5 L Anion Gap Estim Creat Clear Calc Estimated GFR POC Glucose 388 H* Fasting Glucose Calcium Troponin I High Sens Urine Color YELLOW Urine Appearance HAZY Urine pH 6.0 Ur Specific [place] 1.025 Urine Protein NEG Urine Glucose (UA) NEG Urine Ketones 5 Urine Blood TRACE Urine Nitrite NEG Ur Leukocyte Esterase NEG Urine RBC 0-2 Urine WBC 0-2 Ur Squamous Epith Cells 2+ Urine Bacteria TRACE Urine Mucus 2+ 05/05/21 05/05/21 05/05/21 16:48 17:24 19:02 MCV MCH MCHC RDW Plt Count MPV Absolute Nucleated RBC Nucleated RBC % (auto) PT INR APTT Anion Gap Estim Creat Clear Calc Estimated GFR POC Glucose 321 H 282 H Fasting Glucose Calcium Troponin I High Sens 30.8 Urine Color Urine Appearance Urine pH Ur Specific [place] Urine Protein Urine Glucose (UA) Urine Ketones Urine Blood Urine Nitrite Ur Leukocyte Esterase Urine RBC Urine WBC Ur Squamous Epith Cells Urine Bacteria Urine Mucus 05/05/21 05/05/21 05/06/21 19:57 22:27 05:16 MCV 94.5 MCH 32.0 MCHC 33.9 RDW 13.1 Plt Count 130 L MPV 10.9 Absolute Nucleated RBC 0.000 Nucleated RBC % (auto) 0.0 PT INR APTT Anion Gap Estim Creat Clear Calc Estimated GFR POC Glucose 321 H 251 H Fasting Glucose Calcium Troponin I High Sens Urine Color Urine Appearance Urine pH Ur Specific [place] Urine Protein Urine Glucose (UA) Urine Ketones Urine Blood Urine Nitrite Ur Leukocyte Esterase Urine RBC Urine WBC Ur Squamous Epith Cells Urine Bacteria Urine Mucus 05/06/21 05/06/21 05/06/21 05:16 07:17 11:17 MCV MCH MCHC RDW Plt Count MPV Absolute Nucleated RBC Nucleated RBC % (auto) PT INR APTT Anion Gap 13 Estim Creat Clear Calc 54.1 Estimated GFR 53 POC Glucose 297 H 257 H Fasting Glucose 313 H Calcium 8.3 L D Troponin I High Sens Urine Color Urine Appearance Urine pH Ur Specific [place] Urine Protein Urine Glucose (UA) Urine Ketones Urine Blood Urine Nitrite Ur Leukocyte Esterase Urine RBC Urine WBC Ur Squamous Epith Cells Urine Bacteria Urine Mucus Assessment and Plan (1) Acute hyperglycemia: Status: Acute Assessment and Plan: ?75M presented with weakness, fall, found to have elevated sugars and creatinine fall/weakness suspect due to recent covid vaccine booster mri negative, no further work up was going to discharge, but patient concerned about unsteadiness requesting pt eval for possible STR at [facility] on CKD II-III back to suspected baseline DM with hyperglycemia due to not taking insulin restarted basal bolus insulin HTN, HLD does not appear to be on meds Quality Stroke Does the patient have a stroke diagnosis?: No VTE Prior VTE?: No VTE Risk Level:: Medical - moderate - high VTE Device Contraindication: Treatment Not Indicated VTE Drug Contraindication: N/A - Med Ordered
[2021-05-06 16:25] LABS: Glucose, Whole Blood 235 mg/dL (60-115)
--- NOTE | 2021-05-06 16:27 | MHC.CM.PN ---
CM MET WITH PT WHO REPORTS HE LIVES ALONE AND HAS NO SERVICES. PT REPORTS HE HAS A CANE AND NO OTHER DME. PT STATES BECAUSE A FALL WAS THE PRECIPITANT TO ADMISSION, HIS SON, DARCI, IS ADAMANT HE SHOULD GO TO [facility]. PT DOES NOT KNOW WHAT FACILITIES HE WOULD PREFER YET BUT WILL DISCUSS IT WITH DARCI WHEN HE COMES TO VISIT THIS EVENING. PT IS VACCINATED AGAINST COVID 19 AND WILL PROVIDE HIS CARD TO CM TOMORROW MORNING. PT HAS RECEIVED BOTH DOSES AND A BOOSTER. PT IS A AND IS 100% CONNECTED. PT REPORTS HIS PCP IS JOHN ANDERSON. OBS NOTICE DELIVERED CURRENT DC PLAN IS STR PENDING PT EVAL. FACILITY TBD FAMILY VS CHAIR VAN TRANSPORT
[2021-05-06 20:47] LABS: Glucose, Whole Blood 317 mg/dL (60-115)
[2021-05-06] MEDS: Insulin Glargine,Hum.rec.anlog 100 UNIT/ML 10 ML VIAL 30 UNIT SUBCUT (21:09)
[2021-05-07] VITALS (11 sets, daily range): BP systolic 121–176; BP diastolic 57–85; PULSE 60–80; RESP 18–20; TEMP 36.8–37.7; O2SAT 94–96
[2021-05-07 07:21] LABS: Glucose, Whole Blood 282 mg/dL (60-115)
[2021-05-07] MEDS: Heparin Sodium,Porcine 5,000 UNIT/ML VIAL 5000 UNIT SUBCUT ×2 (07:34→17:00)
[2021-05-07] MEDS: Insulin Lispro 100 UNIT/ML 3 ML VIAL SUBCUT ×8 (07:35→20:53)
[2021-05-07] MEDS: Aspirin Enteric Coated 81 MG TABLET.DR PO (07:35)
[2021-05-07] MEDS: 0.9 % Sodium Chloride Flush 3 ML SYRINGE IVFLUSH ×2 (07:35→16:59)
[2021-05-07] MEDS: Lactated Ringers 1,000 ML 80 ML IVCONT (07:36)
--- NOTE | 2021-05-07 10:34 | HO.PM.IMPN ---
Subjective Subjective Date of Service: 05/07/21 Interval History: feeling stronger today Cardiovascular Cardiovascular: Reports no additional cardiovascular complaints Respiratory Respiratory: Reports no additional respiratory complaints Physical Exam Vital Signs: Vital Signs: Last Vital Signs Temp 98.5 F 05/07/21 07:55 Pulse 71 05/07/21 08:00 Resp 19 05/07/21 07:55 BP 176/85 H 05/07/21 08:00 Pulse Ox 96 05/07/21 07:55 Body Mass Index 31.4 General: AO X 3, no acute distress Resp: CTA bilateral CVS: S1,S2,RRR GI: soft, non tender, non distended Neuro: motor grossly intact Psych: appropriate affect Objective Data Current Medications Generic Name Dose Route Start Last Admin Trade Name Freq PRN Reason Stop Dose Admin Aspirin 81 mg 05/06/21 09:00 05/07/21 07:35 Aspirin Enteric Coated 81 Mg Tablet.Dr PO 81 mg DAILY SAIGE Administration Dextrose 25 gm 05/05/21 17:51 Dextrose 50 % 25 Gm/50 Ml Vial IVPUSH Q15M PRN per Hypoglycemia Standing Ord. Protocol Glucose 15 gm 05/05/21 17:51 Glucose Gel 15 Gm Gel..Gram. PO Q15M PRN per Hypoglycemia Standing Ord. Protocol Heparin Sodium (Porcine) 5,000 unit 05/05/21 19:00 05/07/21 07:34 Heparin Sodium,Porcine 5,000 Unit/Ml Vial SUBCUT 5,000 unit Q12H SAIGE Administration Lactated Ringer's 1,000 mls @ 80 mls/hr 05/05/21 18:00 05/07/21 07:36 Lr IVCONT 80 mls/hr .[id number] SAIGE Administration Insulin Glargine 30 unit 05/06/21 21:00 05/06/21 21:09 Insulin Glargine,Hum.Rec.Anlog 100 Unit/Ml 10 Ml Vial SUBCUT 30 unit BEDTIME SAIGE Administration Insulin Human Lispro 0 unit 05/05/21 21:00 05/07/21 07:35 Insulin Lispro 100 Unit/Ml 3 Ml Vial SUBCUT 6 unit QIDACHS SAIGE Administration Protocol Insulin Human Lispro 5 unit 05/05/21 21:00 05/07/21 07:35 Insulin Lispro 100 Unit/Ml 3 Ml Vial SUBCUT 5 unit QIDACHS [facility] Administration Pharmacy Consult 1 each 05/05/21 16:54 Consult Rx Perform Med Rec MISCELLANE ONCE PRN Consult order Sodium Chloride 3 ml 05/06/21 00:00 05/07/21 07:35 0.9 % Sodium Chloride Flush 3 Ml Syringe IVFLUSH 3 ml QSHIFT SAIGE Administration Labs CBC & Chem 7: 05/06/21 05:16 05/06/21 05:16 Labs: Laboratory Results - last 24 hr 05/06/21 05/06/21 05/06/21 11:17 16:16 20:42 POC Glucose 257 H 235 H 317 H 05/07/21 07:14 POC Glucose 282 H Assessment and Plan (1) Acute hyperglycemia: Status: Acute Assessment and Plan: ?75M presented with weakness, fall, found to have elevated sugars and creatinine fall/weakness suspect due to recent covid vaccine booster mri negative, no further work up indicated at this time was going to discharge home yesterday, but patient concerned about unsteadiness requesting pt eval for possible STR at [facility] on CKD II-III back to suspected baseline DM with hyperglycemia due to not taking insulin restarted basal bolus insulin HTN, HLD does not appear to be on meds will start on amlodipine and lisinopril Quality Stroke Does the patient have a stroke diagnosis?: No VTE Prior VTE?: No VTE Risk Level:: Medical - moderate - high VTE Device Contraindication: Treatment Not Indicated VTE Drug Contraindication: N/A - Med Ordered
[2021-05-07 11:43] LABS: Glucose, Whole Blood 272 mg/dL (60-115)
[2021-05-07] MEDS: amLODIPine Besylate 5 MG TABLET PO (12:19)
[2021-05-07] MEDS: lisinopriL 5 MG TABLET PO (12:19)
--- NOTE | 2021-05-07 12:19 | P.CNNE_ITS ---
History of Present Illness Data of Consult Service Date: 05/07/21 Primary Care Provider: Unknown Physician HPI Reason for consult: Fall with inability to get up This is a 75-year-old man with a history of diabetes hypertension hyperlipidemia who had his 3rd COVID vaccination the day prior to admission. He woke up that morning and sat on the side of the bed and felt a little weak. He had not taken his insulin yet. He took a few steps and fell to his knees and could not get up with the help of his cane or pushing up with his arm and then he fell forward on the ground from his knees hitting the top of his head on the ground without loss of consciousness. For 4 hours he tried getting up but was unable to get up from the floor. He was able to move all 4 extremities but felt that his arms and legs were too weak to get him up. He finally called his girlfriend who had his sons come in and pick him up and the photographic enlarger operator were called and he was brought to the hospital. He feels stronger now. He did not have any chills or fever. Previous vaccinations associated only with a sore arm. He has no history of str corie or TIA. At no point was the speech affected or his mentation. He had an MRI of the brain which shows age-related atrophy and microvascular disease with no acute infarct. Review of Systems Review of Systems: Constitutional: Denies fever, denies Chills Eyes: denies blurry vision ENT: denies sore throat CVS: denies chest pain Respiratory: Denies dyspnea GI: no abdominal pain : denies dysuria MSK: denies neck pain Skin: denies rash Neuro: denies specific motor weakness Psych: denies suicidal ideation Endocrine: denies heat/cold intolerance Hematologic: denies easy bleeding Allergy: denies hives Constitutional: Constitutional: Denies body ache(s), Denies chills, Denies fatigue, Denies fever(s), Denies headache(s), Denies malaise and Reports weakness Eyes: Eyes: Reports blurry vision, Denies diplopia, Denies loss of vision and Denies eye pain ENT: Denies vertigo, Reports dizziness, Denies otalgia, Denies headache(s), Denies mouth pain, Reports disequilibrium, Denies post nasal drip, Denies sinus pain, Denies sinus pressure, Denies sore throat and Denies throat swelling Cardiovascular: Cardiovascular: Reports no additional cardiovascular complaints, Denies chest pain, Denies syncope, Denies leg edema, Reports lightheadedness, Denies Loss of Consciousness, Denies palpitations and Denies dyspnea Respiratory: Respiratory: Reports no additional respiratory complaints, Denies chest congestion, Denies cough and Denies dyspnea Gastrointestinal: Gastrointestinal: Denies abdominal pain, Denies hematochezia, Denies constipation, Denies diarrhea and Denies vomiting Genitourinary: Genitourinary: Denies dysuria, Denies flank pain, Denies urinary frequency, Denies urinary hesitancy, Denies urinary incontinence and Denies urinary urgency Musculoskeletal: Musculoskeletal: Reports muscle weakness and Denies tingling Integumentary/Breasts: Skin/Breast: Denies erythema, Denies rash and Denies wounds Neurologic: Denies Abnormal speech present, Denies confusion, Denies vertigo, Reports dizziness, Denies syncope, Denies headache(s), Denies loss of vision, Denies Sensory deficit (Neuro), Denies tingling, Denies paresthesias, Reports disequilibrium and Reports weakness Psychiatric: Psychiatric: Denies anxiety, Denies confusion and Denies depression Endocrine: Endocrine: Denies fatigue and Denies palpitations Allergic/Immunologic: Allergic/Immunologic: Denies throat swelling PMFSH Past Medical History Medical History Diabetes HLD (hyperlipidemia) HTN (hypertension) Family History Family history: reviewed and not pertinent Social History Social History Patient Tobacco Use Status: Never used Tobacco Advance Directives: No Advance Directives Information Provided: No service: Yes Current occupational status: retired [employer] Allergies Allergy/AdvReac Type Severity Reaction Status Date / Time No Known Allergies Allergy Unverified 06/02/20 19:37 [No Known Allergies*] Active Medications: Current Medications Generic Name Dose Route Start Last Admin Trade Name Freq PRN Reason Stop Dose Admin Amlodipine Besylate 5 mg 05/07/21 11:00 05/07/21 12:19 Amlodipine Besylate 5 Mg Tablet PO 5 mg DAILY [facility] Administration Protocol Aspirin 81 mg 05/06/21 09:00 05/07/21 07:35 Aspirin Enteric Coated 81 Mg Tablet. PO 81 mg DAILY [facility] Administration Dextrose 25 gm 05/05/21 17:51 Dextrose 50 % 25 Gm/50 Ml Vial IVPUSH Q15M PRN per Hypoglycemia Standing Ord. Protocol Glucose 15 gm 05/05/21 17:51 Glucose Gel 15 Gm Gel..Gram. PO Q15M PRN per Hypoglycemia Standing Ord. Protocol Heparin Sodium (Porcine) 5,000 unit 05/05/21 19:00 05/07/21 07:34 Heparin Sodium,Porcine 5,000 Unit/Ml Vial SUBCUT 5,000 unit Q12H [facility] Administration Lactated Ringer's 1,000 mls @ 80 mls/hr 05/05/21 18:00 05/07/21 07:36 Lr IVCONT 80 mls/hr .[id number] [facility] Administration Insulin Glargine 30 unit 05/06/21 21:00 05/06/21 21:09 Insulin Glargine,Hum.Rec.Anlog 100 Unit/Ml 10 Ml Vial SUBCUT 30 unit BEDTIME [facility] Administration Insulin Human Lispro 0 unit 05/05/21 21:00 05/07/21 12:19 Insulin Lispro 100 Unit/Ml 3 Ml Vial SUBCUT 6 unit QIDACHS [facility]IG[facility] Administration Protocol Insulin Human Lispro 5 unit 05/05/21 21:00 05/07/21 12:19 Insulin Lispro 100 Unit/Ml 3 Ml Vial SUBCUT 5 unit QIDACHS [facility]IGE Administration Lisinopril 5 mg 05/07/21 11:00 05/07/21 12:19 Lisinopril 5 Mg Tablet PO 5 mg DAILY [facility] Administration Protocol Pharmacy Consult 1 each 05/05/21 16:54 Consult Rx Perform Med Rec MISCELLANE ONCE PRN Consult order Sodium Chloride 3 ml 05/06/21 00:00 05/07/21 07:35 0.9 % Sodium Chloride Flush 3 Ml Syringe IVFLUSH 3 ml QSHIFT SAIGE Administration Home Medications Medication Instructions Recorded Confirmed Last Taken Type cholecalciferol (vitamin D3) 50 50 mcg PO DAILY 05/05/21 05/05/21 Unknown History mcg (2,000 unit) capsule (Vitamin D3) fluoride (sodium) 1.1 % dental 1 appl DENTAL BID 05/05/21 05/05/21 Unknown History paste insulin aspart U-100 100 unit/mL 65 unit SUBCUT TIDAC 05/05/21 05/05/21 Unknown History subcutaneous solution (Novolog U-100 Insulin aspart) insulin glargine 100 unit/mL 85 unit SUBCUT BEDTIME 05/05/21 05/05/21 Unknown History subcutaneous solution (Lantus U-100 Insulin) multivitamin 1 tab PO DAILY 05/05/21 05/05/21 Unknown History Physical Exam Vital Signs: Vital Signs: Last Vital Signs Temp 98.5 F 05/07/21 12:00 Pulse 70 05/07/21 12:19 Resp 20 05/07/21 12:00 BP 139/71 05/07/21 12:19 Pulse Ox 96 05/07/21 12:00 Body Mass Index 31.4 Const: General: no acute distress, alert and awake; No confusion Nutritional Appearance: obese centrally obese Orientation/consciousness: patient oriented x3 and No confusion Limitations: no limitations HENMT: Head: Yes normal to inspection, Yes normocephalic and Yes atraumatic Ears: hearing grossly normal bilaterally and external ears normal General nos e exam: Normal external nose present Face and sinus: Yes normal facial exam Mouth: Normal oral and palatal mucosa present Throat: Yes posterior oropharynx normal Eyes: Conjunctivae: conjunctivae normal Pupils: Equal, round and reactive pupils present EOM: EOMs intact bilaterally and No Nystagmus present Neck: Neck: Yes full ROM, Yes no lymphadenopathy and Yes supple Resp: Effort & Inspection: normal respiratory effort and able to speak in complete sentences Auscultation: clear to auscultation bilaterally, no crackles, no rales, no rhonchi and no wheezes Cardio: Rate: regular rate Rhythm: regular rhythm Heart sounds: S1 normal heart sound present and S2 normal heart sound present GI: Inspection: Yes visible herniation (umbilical) Palpation (GI): Soft to palpation, nontender, no guarding, not rigid and Hernia present umbilical (nontender and reducible) Percussion: Yes normal to percussion Auscultation: normal bowel sounds : General: Yes no CVA tenderness Back/Spine/Pelvis: Back: no CVA tenderness Cervical Spine: normal cervical lordosis, cervical ROM normal, No cervical muscular tenderness and No Cervical spine tenderness Thoracic/Lumbar Spine: No thoracic spinal tenderness and No lumbar spinal tenderness Skin: Other: Mild hemosiderin deposits lower extremities General skin exam: no rashes or lesions noted Neuro: General: patient oriented x3 and No confusion Cranial nerves: Yes CN's II-XII intact bilaterally, Yes Facial sensation intact/muscles of mas tication intact, Yes Equal, round and reactive pupils present, Yes Bilaterally intact EOM present, Yes Nystagmus not present, Yes Midline tongue present, Yes Ability to bilaterally rotate head present, Yes Ability to bilaterally elevate shoulders present and No Nystagmus present Cognition (Neuro): normal cognition Speech: No Abnormal speech present Gait exam (Neuro): Ataxic gait present Motor exam (neuro): 5/5 motor strength present throughout and Pronator motor function not present Sensory Exam: No Sensory deficit (Neuro) Deep tendon reflexes (DTR's): Right brachioradialis reflex intensity grade: 1+, Left brachioradialis reflex intensity grade: 1+, Right patellar reflex intensity grade: 0, Left patellar reflex intensity grade: 0, Right ankle reflex intensity grade: 0 and Left ankle reflex intensity grade: 0 Coordination: [id number] test normal, does not sway with eyes open and Romberg test neg ative Romberg Test: Negative Pupils: Normal pupillary reactivity/response: bilateral Extrem: General: Yes normal to inspection and Yes full ROM Psych: Appearance: grossly normal Affect: normal affect Attitude: cooperative Thought process: Normal thought process present Results Labs CBC & Chem 7: 05/06/21 05:16 05/06/21 05:16 Assessment and Plan (1) Acute hyperglycemia: Status: Acute Adjust his antidiabetic medicationsfor better sugar control (2) Fall: Qualifiers: Encounter type: initial encounter Qualified Code(s): W19.XXXA - Unspecified fall, initial encounter Status: Acute Fall from generalized weakness with poor conditioning of muscles and inability to get up from the ground. No evidence of acute stroke Recommend physical therapy for generalized strengthening and rehab (3) CARLY (acute kidney injury): Status: Acute (4) Blunt head trauma: Status: Acute Minor head injury with the forehead bruise no evidence of any intracranial injury. 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
[2021-05-07 16:25] LABS: Glucose, Whole Blood 310 mg/dL (60-115)
[2021-05-07] MEDS: Insulin Glargine,Hum.rec.anlog 100 UNIT/ML 10 ML VIAL 30 UNIT SUBCUT (20:52)
[2021-05-07 21:56] LABS: Glucose, Whole Blood 320 mg/dL (60-115)
[2021-05-08] VITALS (9 sets, daily range): BP systolic 134–169; BP diastolic 68–77; PULSE 54–77; RESP 18–20; TEMP 36.5–36.9; O2SAT 93–98
[2021-05-08 07:26] LABS: Glucose, Whole Blood 272 mg/dL (60-115)
[2021-05-08] MEDS: Aspirin Enteric Coated 81 MG TABLET.DR PO (09:17)
[2021-05-08] MEDS: amLODIPine Besylate 5 MG TABLET PO (09:17)
[2021-05-08] MEDS: 0.9 % Sodium Chloride Flush 3 ML SYRINGE IVFLUSH (09:18)
[2021-05-08] MEDS: lisinopriL 5 MG TABLET PO (09:18)
[2021-05-08] MEDS: Insulin Lispro 100 UNIT/ML 3 ML VIAL SUBCUT ×4 (09:18→12:12)
[2021-05-08] MEDS: Heparin Sodium,Porcine 5,000 UNIT/ML VIAL 5000 UNIT SUBCUT (09:19)
[2021-05-08 11:19] LABS: Glucose, Whole Blood 302 mg/dL (60-115)
[2021-05-08 13:33] LABS: COVID-19 Test Negative (Negative); IDNOW Serial# 08D9AD1C
--- NOTE | 2021-05-08 13:40 | MHC.CM.PN ---
Patient has been medically cleared for dc to STR/SNF today. Patient will dc to [facility] (accept[facility] and [facility]) today at 4PM, via [employer] van. Patient is aware of and in agreement with the dc plan.
--- NOTE | 2021-05-08 13:44 | MHC.CM.PN ---
CM has left a detailed message for Son/first contact/José @ [phone], informing him of the dc plan.
== END 2021-05-08 16:10 | disposition skilled nursing facility (03) ==
LOC: HO.ED 17:03 → HO.EDOVER 19:21 → HO.IMC 21:33
PROVIDERS: Physician Assistant; Admitting Provider Internal Medicine; Emergency Provider Internal Medicine; PCP Physician Assistant; Visit Provider Internal Medicine
DX: E10.65 Type 1 diabetes mellitus with hyperglycemia (principal); N18.30 Chronic kidney disease, stage 3 unspecified; N17.9 Acute kidney failure, unspecified; R42 Dizziness and giddiness; R53.1 Weakness; S09.8XXA Other specified injuries of head, initial encounter; W01.10XA Fall on same level from slipping, tripping and stumbling with subsequent striking against unspecified object, initial encounter; Y93.89 Activity, other specified; Y92.003 Bedroom of unspecified non-institutional (private) residence as the place of occurrence of the external cause; Y99.8 Other external cause status; I10 Essential (primary) hypertension; E78.5 Hyperlipidemia, unspecified; Z79.82 Long term (current) use of aspirin; Z79.4 Long term (current) use of insulin; Z79.899 Other long term (current) drug therapy
CPT/HCPCS: 36415; 70450; 70551; 71045; 72125; 80048; 80053; 81001; 81003; 82550; 82947; 83735; 84484; 85025; 85027; 85610; 85730; 87635; 93005; 96361; 96372; 96374; 96375; 97162; 99219; 99285